=== PATIENT | male | born 1990 | race Caucasian/White ===

== ENCOUNTER 2022-01-18 02:36 | Inpatient (IN) | payer OTHER ==
[~2022-01-18] VITALS: Ht 175.3 cm; Wt 71.7 kg
[2022-01-18 03:06] LABS: Basophils # (auto) 0.1 10 ^3/uL (0-0.2); Basophils % (auto) 0.4 % (0.0-2.0); Eosinophils # (auto) 0.1 10 ^3/uL (0-0.8); Eosinophils % (auto) 0.3 % (0.0-7.0); Hematocrit 38.6 % (41.0-53.0); Hemoglobin 13.7 g/dL (13.5-17.5); Lymphocytes # (auto) 1.9 10 ^3/uL (0.4-5.4); Lymphocytes % (auto) 11.6 % (10.0-50.0); Mean Corpuscular Hemoglobin 31.5 pg (28.0-32.0); Mean Corpuscular Hgb Conc. 35.4 g/dL (32.0-36.0); Monocytes # (auto) 1.2 10 ^3/uL (0-1.3); Monocytes % (auto) 7.1 % (0.0-12.0); Neutrophils # (auto) 13.1 10 ^3/uL (1.6-8.6); Neutrophils % (auto) 80.6 % (37.0-80.0); Red Blood Cells 4.34 10^6/uL (4.5-5.90); Red Cell Distribution Width 12.9 % (11.8-14.3); White Blood Cell 16.2 10^3/uL (4.4-10.8)
[2022-01-18 03:24] LABS: Albumin 3.9 g/dL (3.4-5.0); BUN/Creatinine Ratio 9.9; Calcium 8.6 mg/dL (8.5-10.1); Potassium 3.9 mmol/L (3.5-5.1)
[2022-01-18 03:27] LABS: Bilirubin, Total 0.3 mg/dL (0.2-1.0); Total Protein 7.8 g/dL (6.4-8.2)
[2022-01-18] MEDS ORDERED: IOHEXOL 300 MG/ML 100ML BOTTLE IJ ONE (04:57)
[2022-01-18] MEDS ORDERED: ACETAMINOPHEN 325 MG TAB PO ONE (06:15)
[2022-01-18 07:05] LABS: Urine Bacteria NONE SEEN /hpf (None Seen); Urine Blood Negative /uL (Negative); Urine Mucus FEW (None Seen); Urine Specific Gravity 1.045 (1.001-1.035); Urine WBC <1 /hpf (0 - 3)
[2022-01-18] MEDS ORDERED: SODIUM CHLORIDE 0.9% 1,000 ML IV ONE (11:15)
[2022-01-18] MEDS ORDERED: SODIUM CHLORIDE 0.9% 500 ML IVB ONE (11:15)
[2022-01-18] MEDS ORDERED: metroNIDAZOLE 500MG/100ML 100 ML IV ONE ×2 (11:15→15:30)
[2022-01-18] MEDS ORDERED: MORPHINE SULFATE 4 MG/ML SYR/VIAL IV ONE (11:15)
[2022-01-18] MEDS ORDERED: cefTRIAXone 1GM/50ML D5W 50 ML IV ONE ×2 (11:15→15:30)
[2022-01-18] MEDS ORDERED: ONDANSETRON HCL 4 MG/2 ML VIAL IV ONE (11:15)
[2022-01-18 12:15] LABS: Magnesium 2.2 mg/dL (1.6-2.6)
[2022-01-18] MEDS ORDERED: MORPHINE SULFATE INJECTION 2 MG/ML SYRG IV PRN (13:30)
[2022-01-18] MEDS ORDERED: NITROGLYCERIN 0.4 MG SL TAB SL PRN (13:30)
[2022-01-18] MEDS: SODIUM CHLORIDE 0.9% 1,000 ML IV SCH (14:16)
[2022-01-18] MEDS ORDERED: HYDROcodone-ACET 5/325MG TAB PO PRN (15:15)
[2022-01-18] MEDS ORDERED: hydrALAZINE HCL 20 MG/ML VL IV PRN (15:15)
[2022-01-18] MEDS ORDERED: DOCUSATE SOD 100 MG CAP PO PRN (15:15)
[2022-01-18] MEDS ORDERED: ONDANSETRON HCL 4 MG/2 ML VIAL IV PRN (15:15)
[2022-01-18] MEDS ORDERED: FAMOTIDINE (10MG/ML) 2ML VL IV ONE (15:15)
[2022-01-18] MEDS ORDERED: LORazepam 0.5 MG TAB PO PRN (15:15)
[2022-01-18] MEDS ORDERED: ACETAMINOPHEN 325 MG TAB PO PRN (15:15)
[2022-01-18 16:13] LABS: Magnesium 2.3 mg/dL (1.6-2.6); Phosphorus 2.8 mg/dL (2.5-4.90)
[2022-01-18 19:00] VITALS: BP 120/76
[2022-01-18 19:24] LABS: INR 1.14 (0.9-1.15); Partial Thromboplastin Time 30.7 sec (23.6-33.0)
[2022-01-18] MEDS: MORPHINE SULFATE INJECTION 2 MG/ML SYRG IV PRN (21:11)
[2022-01-18] MEDS: metroNIDAZOLE 500MG/100ML 100 ML IV SCH (21:12)
[2022-01-18 22:00] VITALS: BP 115/70
[2022-01-18] MEDS ORDERED: AMPH20TA2 PO (23:50)
[2022-01-18] MEDS ORDERED: [UNRECOGNIZED DRUG - CODE] PO (23:50)
[2022-01-18] MEDS ORDERED: OMEG10003 PO (23:50)
[2022-01-18] MEDS ORDERED: [UNRECOGNIZED DRUG - CODE] IV (23:50)
[2022-01-19 05:00] VITALS: BP 124/72
[2022-01-19] MEDS: metroNIDAZOLE 500MG/100ML 100 ML IV SCH ×3 (05:29→22:00)
[2022-01-19] MEDS: MORPHINE SULFATE INJECTION 2 MG/ML SYRG IV PRN (05:30)
[2022-01-19] MEDS: SODIUM CHLORIDE 0.9% 1,000 ML IV SCH ×2 (07:23→23:35)
[2022-01-19 07:25] LABS: Basophils # (auto) 0 10 ^3/uL (0-0.2); Basophils % (auto) 0.1 % (0.0-2.0); Eosinophils # (auto) 0 10 ^3/uL (0-0.8); Eosinophils % (auto) 0.1 % (0.0-7.0); Hematocrit 36.6 % (41.0-53.0); Hemoglobin 12.8 g/dL (13.5-17.5); Lymphocytes # (auto) 1.2 10 ^3/uL (0.4-5.4); Lymphocytes % (auto) 10.3 % (10.0-50.0); Mean Corpuscular Hemoglobin 31.5 pg (28.0-32.0); Mean Corpuscular Hgb Conc. 34.9 g/dL (32.0-36.0); Mean Corpuscular Volume 90.1 fL (80.0-100.0); Monocytes # (auto) 1.2 10 ^3/uL (0-1.3); Monocytes % (auto) 10.2 % (0.0-12.0); Neutrophils # (auto) 9.4 10 ^3/uL (1.6-8.6); Neutrophils % (auto) 79.3 % (37.0-80.0); Red Blood Cells 4.06 10^6/uL (4.5-5.90); Red Cell Distribution Width 12.3 % (11.8-14.3); White Blood Cell 11.9 10^3/uL (4.4-10.8)
[2022-01-19 07:43] LABS: INR 1.2 (0.9-1.15); Partial Thromboplastin Time 33.6 sec (23.6-33.0)
[2022-01-19 07:48] LABS: Calcium 8.3 mg/dL (8.5-10.1); Magnesium 2.1 mg/dL (1.6-2.6); Potassium 3.6 mmol/L (3.5-5.1)
[2022-01-19 07:59] LABS: Albumin 3.5 g/dL (3.4-5.0); BUN/Creatinine Ratio 7.5; Bilirubin, Total 0.8 mg/dL (0.2-1.0); CRP High Sensitivity 18.4 mg/dL (< 0.3); Phosphorus 2.9 mg/dL (2.5-4.90); Total Protein 7.5 g/dL (6.4-8.2); Uric Acid 5.2 mg/dL (3.5-7.2)
[2022-01-19 09:00] VITALS: BP 121/72
[2022-01-19] MEDS: cefTRIAXone 1GM/50ML D5W 50 ML IV SCH (09:18)
[2022-01-19] MEDS: FAMOTIDINE (10MG/ML) 2ML VL IV SCH (09:18)
[2022-01-19] MEDS: ENOXAPARIN SOD 40 MG/0.4 ML SYRINGE SC SCH (09:19)
[2022-01-19] MEDS: CYANOCOBALAMIN 500 MCG TAB PO SCH (09:19)
[2022-01-19 09:22] LABS: Amphetamine Screen, Urine NEGATIVE (NEGATIVE); Barbiturate Scree,Urine NEGATIVE (NEGATIVE); Benzodiazephine Screen, Urine NEGATIVE (NEGATIVE); Cannabinoid Screen, Urine NEGATIVE (NEGATIVE); Cocaine Screen, Urine NEGATIVE (NEGATIVE); Opiate Scree,Urine POSITIVE (NEGATIVE); Phencyclidine Screen, Urine NEGATIVE (NEGATIVE); Protein, Urine 25.1 mg/dL (0.0-11.9)
[2022-01-19 09:28] LABS: Urine Bacteria NONE SEEN /hpf (None Seen); Urine Blood Negative /uL (Negative); Urine Mucus FEW (None Seen); Urine Specific Gravity 1.014 (1.001-1.035); Urine WBC 3 /hpf (0 - 3)
[2022-01-19 13:00] VITALS: BP 123/74
[2022-01-19 17:18] VITALS: BP 128/76
[2022-01-19] MEDS: DOCUSATE SOD 100 MG CAP PO SCH (21:49)
[2022-01-19 22:00] VITALS: BP_SYST 126; BP_SYST 155; BP_DIAS 68; BP_DIAS 83
[2022-01-20] MEDS: MORPHINE SULFATE INJECTION 2 MG/ML SYRG IV PRN (01:21)
[2022-01-20 05:00] VITALS: BP_SYST 112; BP_SYST 136; BP_DIAS 62; BP_DIAS 76
[2022-01-20 06:05] LABS: Basophils # (auto) 0 10 ^3/uL (0-0.2); Basophils % (auto) 0.2 % (0.0-2.0); Eosinophils # (auto) 0 10 ^3/uL (0-0.8); Eosinophils % (auto) 0.3 % (0.0-7.0); Hematocrit 37.4 % (41.0-53.0); Hemoglobin 13.2 g/dL (13.5-17.5); Lymphocytes # (auto) 1.7 10 ^3/uL (0.4-5.4); Mean Corpuscular Hemoglobin 31.5 pg (28.0-32.0); Mean Corpuscular Hgb Conc. 35.3 g/dL (32.0-36.0); Mean Corpuscular Volume 89.3 fL (80.0-100.0); Monocytes # (auto) 1.6 10 ^3/uL (0-1.3); Monocytes % (auto) 12.2 % (0.0-12.0); Neutrophils # (auto) 9.6 10 ^3/uL (1.6-8.6); Neutrophils % (auto) 74.3 % (37.0-80.0); Red Blood Cells 4.19 10^6/uL (4.5-5.90); Red Cell Distribution Width 12.6 % (11.8-14.3)
[2022-01-20] MEDS: metroNIDAZOLE 500MG/100ML 100 ML IV SCH ×3 (06:06→21:11)
[2022-01-20] MEDS: SODIUM CHLORIDE 0.9% 1,000 ML IV SCH (06:07)
[2022-01-20 06:15] LABS: Albumin 3.2 g/dL (3.4-5.0); Calcium 8.3 mg/dL (8.5-10.1); Magnesium 2.4 mg/dL (1.6-2.6); Potassium 3.7 mmol/L (3.5-5.1)
[2022-01-20 06:17] LABS: INR 1.16 (0.9-1.15); Partial Thromboplastin Time 31.6 sec (23.6-33.0)
[2022-01-20 06:19] LABS: BUN/Creatinine Ratio 8.2; Bilirubin, Total 0.6 mg/dL (0.2-1.0); Phosphorus 3.4 mg/dL (2.5-4.90); Total Protein 7.5 g/dL (6.4-8.2)
[2022-01-20 09:16] VITALS: BP 108/70
[2022-01-20] MEDS ORDERED: IOHEXOL 300 MG/ML 100ML BOTTLE IJ ONE (09:30)
[2022-01-20] MEDS: BUDESONIDE 1 MG PO SCH (10:00)
[2022-01-20] MEDS: DOCUSATE SOD 100 MG CAP PO SCH ×2 (10:10→21:11)
[2022-01-20] MEDS: FAMOTIDINE (10MG/ML) 2ML VL IV SCH (10:10)
[2022-01-20] MEDS: cefTRIAXone 1GM/50ML D5W 50 ML IV SCH (10:11)
[2022-01-20] MEDS: CYANOCOBALAMIN 500 MCG TAB PO SCH (10:11)
[2022-01-20] MEDS: ENOXAPARIN SOD 40 MG/0.4 ML SYRINGE SC SCH (10:11)
[2022-01-20 13:02] VITALS: BP 112/72
[2022-01-20 16:50] VITALS: BP 116/79
[2022-01-20 22:00] VITALS: BP 119/72
[2022-01-21 05:00] VITALS: BP 103/67
[2022-01-21] MEDS: metroNIDAZOLE 500MG/100ML 100 ML IV SCH (06:21)
[2022-01-21 07:08] LABS: Albumin 3.2 g/dL (3.4-5.0); Calcium 8.5 mg/dL (8.5-10.1); Magnesium 2.6 mg/dL (1.6-2.6); Potassium 4.2 mmol/L (3.5-5.1)
[2022-01-21 07:12] LABS: BUN/Creatinine Ratio 6.1; Basophils # (auto) 0 10 ^3/uL (0-0.2); Basophils % (auto) 0.1 % (0.0-2.0); Bilirubin, Total 0.5 mg/dL (0.2-1.0); Eosinophils # (auto) 0 10 ^3/uL (0-0.8); Eosinophils % (auto) 0.5 % (0.0-7.0); Hematocrit 36.7 % (41.0-53.0); Lymphocytes # (auto) 1.3 10 ^3/uL (0.4-5.4); Lymphocytes % (auto) 14.9 % (10.0-50.0); Mean Corpuscular Hemoglobin 31.5 pg (28.0-32.0); Mean Corpuscular Hgb Conc. 35.5 g/dL (32.0-36.0); Mean Corpuscular Volume 88.8 fL (80.0-100.0); Monocytes % (auto) 11.8 % (0.0-12.0); Neutrophils # (auto) 6.4 10 ^3/uL (1.6-8.6); Neutrophils % (auto) 72.7 % (37.0-80.0); Phosphorus 3.8 mg/dL (2.5-4.90); Red Blood Cells 4.13 10^6/uL (4.5-5.90); Red Cell Distribution Width 12.3 % (11.8-14.3); Total Protein 7.6 g/dL (6.4-8.2); White Blood Cell 8.8 10^3/uL (4.4-10.8)
[2022-01-21 08:00] VITALS: BP_SYST 112; BP_SYST 114; BP_DIAS 32; BP_DIAS 72
[2022-01-21] MEDS: SODIUM CHLORIDE 0.9% 1,000 ML IV SCH (08:55)
[2022-01-21] MEDS ORDERED: CYANOCOBALAMIN (B-12) 1000 MCG/1 ML VIAL IM ONE (09:15)
[2022-01-21] MEDS: CYANOCOBALAMIN 500 MCG TAB PO SCH (10:00)
[2022-01-21] MEDS ORDERED: METR500T PO (10:59)
[2022-01-21] MEDS ORDERED: [UNRECOGNIZED DRUG - CODE] PO (10:59)
[2022-01-21] MEDS ORDERED: LEVO500T31 PO (10:59)
[2022-01-21] MEDS: BUDESONIDE 1 MG PO SCH (11:12)
[2022-01-21] MEDS: cefTRIAXone 1GM/50ML D5W 50 ML IV SCH (11:14)
[2022-01-21] MEDS: FAMOTIDINE (10MG/ML) 2ML VL IV SCH (11:20)
[2022-01-21] MEDS: DOCUSATE SOD 100 MG CAP PO SCH (11:21)
[2022-01-21] MEDS: ENOXAPARIN SOD 40 MG/0.4 ML SYRINGE SC SCH (11:21)
[2022-01-21 12:00] VITALS: BP 114/76
[2022-01-21 16:00] VITALS: BP 103/62
[2022-01-21 18:36] VITALS: BP 114/76
== END 2022-01-21 19:35 | disposition home or self-care (01) | DRG 872 ==
LOC: ER 02:36 → OVERFLOW 13:22 → CENTRAL 15:27
PROVIDERS: ADMIT Hospitalist; ATTEND Internal Medicine
DX: A41.9 Sepsis, unspecified organism (principal); K50.00 Crohn's disease of small intestine without complications; K57.32 Diverticulitis of large intestine without perforation or abscess without bleeding; E44.0 Moderate protein-calorie malnutrition; F90.9 Attention-deficit hyperactivity disorder, unspecified type; Z20.822 Contact with and (suspected) exposure to COVID-19; Z87.19 Personal history of other diseases of the digestive system; Z87.891 Personal history of nicotine dependence; Z68.23 Body mass index [BMI] 23.0-23.9, adult
CPT/HCPCS: 36415; 71046; 74177; 80053; 80061; 80307; 81001; 82550; 82607; 82728; 83036; 83615; 83690; 83735; 83880; 84100; 84156; 84443; 84484; 84550; 85025; 85379; 85610; 85652; 85730; 86141; 87040; 87086; 93005; 96365; 96367; 96375; G0378; J0696; J2405; J3490